=== PATIENT | female | born 1995 | race African-American/Black ===

== ENCOUNTER 2019-10-22 01:34 | Emergency (ER) | payer OTHER ==
--- NOTE | 2019-10-22 01:56 | ED Physician Documentation ---
Fall - HISTORIAN Historian: patient - HPI Stated Complaint: I fell out of bed Leg and mouth pain Chief Complaint: Fall Onset: just prior to arrival Where: home Context: other (she fell out of bed and hit the floor or a night stand ) Associated Symptoms:: no loss of consciousness Location of Pain/Injury: face, lower extremity (right knee ) Injury to Right Extremity: knee Further Comments: yes (she states she was asleep at [facility] and rolled out of bed she is not sure why and hit her face on the night stand and knee on nightstand or floor. She has no LOC) - ROS CONST: no problems EYES/ENT: none CVS/RESP: none - PAST HX Past History: none Immunizations: UTD Allergies/Adverse Reactions: Allergies Allergy/AdvReac Type Severity Reaction Status Date / Time No Known Allergies Allergy Verified 10/22/19 01:53 Home Medications: Ambulatory Orders Medication Instructions Recorded Citalopram Hydrobromide [Celexa] 20 mg PO QD 10/22/19 Cyclobenzaprine HCl [Flexeril] 5 mg PO BID 10/22/19 Naltrexone HCl/Bupropion HCl 50 mg PO DAILY 10/22/19 [Contrave ER 8-90 mg Tablet] Prazosin HCl 2 mg PO HS 10/22/19 Trazodone HCl 150 mg PO HS 10/22/19 - SOCIAL HX Smoking History: non-smoker Alcohol Use: heavy Drug Use: none - FAMILY HX Family History: none - VITAL SIGNS Vital Signs: Vital Signs Temp Pulse Resp BP Pulse Ox 97.7 F 88 18 110/78 99 10/22/19 01:38 10/22/19 01:38 10/22/19 01:38 10/22/19 01:38 10/22/19 01:38 - REVIEWED ASSESSMENTS Nursing Assessment Reviewed: Yes Vitals Reviewed: Yes Fall Physical Exam - Physical Exam General Appearance: no acute distress, alert Head: non-tender, no swelling Neck: non-tender, painless ROM Eye: FARIDEH ENT: nml external inspection (She has a small superficial laceration on lower left lip - not through. no dental injury obvious her left lower jaw is mildley swollen with a bruise. She has full ROM of jaw with no pain opening or closing or moving the jaw ), airway nml Resp/CVS: chest non-tender, breath sounds nml, no resp. distress, heart sounds nml Abdomen: soft Neuro: oriented x3, CN's nml as tested Skin: color nml, no rash Back: normal inspection Extremities: atraumatic Joint: joints nml, painful (right knee ) - Chris Coma Score Eyes Open: Spontaneous Speech: Oriented Motor: Obeys Commands Discharge Clincal Impression: Fall Qualifiers: Encounter type: initial encounter Qualified Code(s): W19.XXXA - Unspecified fall, initial encounter Referrals: Primary Doctor,No [Primary Care Provider] - 2 Days Comments: 1. Ice to knee on 20 off 20 for comfort 2. Warm salt water gargles to mouth for aide in healing 3. Meds OTC as directed as needed for pain 4. Follow up with PCP in 2-4 days 5. Return to ER for any increased concerns Condition: Stable Disposition: 01 HOME, SELF-CARE Decision to Admit: NO Date of Decison to Admit: 10/22/19 Decision Time: 02:40
[2019-10-22] MEDS ORDERED: IBUPROFEN 800 MG TABLET PO ONE (02:14)
--- NOTE | 2019-10-22 02:38 | Diagnostic Imaging Report ---
PATIENT MR#: [id number] PATIENT PATIENT NAME: BENNY DALTON DATE OF : 1995 REFERRING PHYSICIAN: Edwige Matias EXAM DATE: 10/22/2019 ACCESSION NUMBER: [id number] EXAM DESCRIPTION: CT MAXILLOFACIAL W/O D CT of the facial bones Clinical history: Fall with injury to the lip, mouth and chin. Technique: CT of the facial bones is performed in contiguous axial slices with sagittal and coronal reconstructions. Findings: Zygomatic arches and nasal bones are intact as is the anterior maxillary spine. Bony elaine ins of the orbits are intact. The extraocular muscles and optic nerves are symmetric. The orbital fat is preserved. Nasal septum lies in a normal midline position. The nasal airway passages are patent. Mandibular condyle is normally seated in the temporal fossa bilaterally. Dental caries is evident. There is impaction of the right 3rd mandibula r molar. Impression: 1. No fracture. 2. Dental caries. 3. Impacted right 3rd mandibular molar. Read by: Dr. Arturo Ma Transcribed by: Transcribed Date: Electronically signed by: Dr. Arturo Ma Date signed: 10/22/2019 2:37:54 AM
--- NOTE | 2019-10-22 02:40 | Diagnostic Imaging Report ---
PATIENT MR#: [id number] PATIENT PATIENT NAME: BENNY DALTON DATE OF : 1995 REFERRING PHYSICIAN: Edwige Matias EXAM DATE: 10/22/2019 ACCESSION NUMBER: [id number] EXAM DESCRIPTION: KNEE 3 VIEWS Three views of the right knee Clinical history: Fall. Pain. Findings: Examination right knee in AP, lateral and sunrise views fails to demonstrate evidence of f racture, dislocation or other bone or joint pathology. Read by: Dr. Arturo Ma Transcribed by: Transcribed Date: Electronically signed by: Dr. Arturo Ma Date signed: 10/22/2019 2:39:54 AM
[2019-10-22 02:56] VITALS: BP 99/65
== END 2019-10-22 02:45 | disposition home or self-care (01) ==
LOC: ED 01:34
DX: S01.511A Laceration without foreign body of lip, initial encounter (principal); W01.198A Fall on same level from slipping, tripping and stumbling with subsequent striking against other object, initial encounter
CPT/HCPCS: 70486; 73562; 81025